=== PATIENT | male | born 1940 | race Caucasian/White ===

== ENCOUNTER 2017-02-16 14:02 | Emergency (ER) | payer OTHER ==
[~2017-02-16] VITALS: Ht 182.9 cm; Wt 90.9 kg
[~2017-02-16 14:02] MED LIST: FISH100020 PO; TERA2CAP3 PO
[2017-02-16 14:04] VITALS: BP 163/81; PULSE 80; RESP 24; TEMP 98.3; O2SAT 97
[2017-02-16 14:45] LABS: AUTOMATED NEUTROPHIL # 7.2 TH/MM3 (1.8-7.7); BASOPHIL % 0.4 % (0.0-2.0); EOSINOPHIL # 0.1 TH/MM3 (0-0.4); EOSINOPHIL % 1.2 % (0.0-4.0); HEMATOCRIT 38.1 % (39.0-51.0); HEMO FLAGS DIFF FINAL; LYMPH % 17.9 % (9.0-44.0); LYMPHOCYTE # 1.8 TH/MM3 (1.0-4.8); MEAN CELL VOLUME 89.4 FL (80.0-100.0); MEAN CORPUSCULAR HEMOGLOBIN 30.1 PG (27.0-34.0); MEAN CORPUSCULAR HGB CONC 33.6 % (32.0-36.0); MONO % 9.1 % (0.0-8.0); NEUT % 71.4 % (16.0-70.0); PLATELET COUNT 219 TH/MM3 (150-450); RED BLOOD COUNT 4.26 MIL/MM3 (4.50-5.90); RED CELL DISTRIBUTION WIDTH 13.5 % (11.6-17.2)
[2017-02-16 15:01] LABS: ANION GAP 9 MEQ/L (5-15); BICARBONATE 25.5 MEQ/L (21.0-32.0); BLOOD UREA NITROGEN 28 MG/DL (7-18); CHLORIDE 106 MEQ/L (98-107); GLOMERULAR FILTRATION RATE 56 ML/MIN (>89); POTASSIUM 4.2 MEQ/L (3.5-5.1); SODIUM (NA) 140 MEQ/L (136-145)
[2017-02-16 15:04] LABS: CREATINE KINASE 168 U/L (39-308)
[2017-02-16 15:17] VITALS: BP 155/74; PULSE 68; RESP 18; O2SAT 99
[2017-02-16 15:17] LABS: CKMB 5.3 NG/ML (0.5-3.6)
[2017-02-16] MEDS ORDERED: TERA2CAP3 PO (15:22)
--- NOTE | 2017-02-16 15:36 | PD ---
HPI Chief Complaint: Respiratory Symptoms Time Seen by Provider: 15:31 Travel History International Travel<30 days: No Contact w/Intl Traveler<30days: No Traveled to known affect area: No History of Present Illness HPI 77-year-old male that presents to the ED for evaluation of respiratory symptoms. Per patient she's been feeling shortness of breath with exertion for the past 2-3 days. She also had congestion and cough and fevers chills and sweats as well as some fatigue and increased tiredness. Per patient she's had something like this before in the past about 2 or 3 years ago and he at the time had pneumonia. Per patient he feels almost the same. He states that he did go his influenza vaccination this year. He has not seen anybody for this. His been taking Claritin [id number] with some relief. Per patient he has no cardiac history he did have a stress test 2 years ago which was negative. He denies any chest pain. He denies any history of CHF. He states having an old history of asthma as well as smoking which he states that he has not had any issues for the past 30 years. He denies smoking for 30 years. He denies any abdominal pain. Nausea or vomiting. No bowel movement or urinary issues. He does have allergies to aspirin, niacin, Pravachol and Zocor. Denies any sore throat. No ear pain. Does state that he has a lot of congestion and cough is productive. PFSH Past Medical History Arthritis: Yes Asthma: Yes Heart Rhythm Problems: No Cardiac Catheterization: No Cardiovascular Problems: Yes High Cholesterol: No Congestive Heart Failure: No Diabetes: No Hypertension: Yes Tetanus Vaccination: > 5 Years Past Surgical History Coronary Artery Bypass Graft: No Other Surgery: Yes (RIGHT HERNIA REPAIR) Social History Alcohol Use: No Tobacco Use: No Substance Use: No Allergies-Medications (Allergen,Severity, Reaction): Coded Allergies: Aspirin (Verified Adverse Reaction, Unknown, Bleeding, 02/16/17) Niacin (Verified Adverse Reaction, Unknown, Joint Pain, 02/16/17) Pravachol (Verified Adverse Reaction, Unknown, Joint Pain, 02/16/17) Zocor (Verified Adverse Reaction, Unknown, Joint Pain, 02/16/17) Uncoded Allergies: ZOC (Adverse Reaction, Unknown, Joint Pain, 02/16/17) zocor Reported Meds & Prescriptions Reported Meds & Active Scripts Active Reported Terazosin (Terazosin HCl) 2 Mg Cap 2 Mg PO HS Review of Systems General / Constitutional: Positive: Fever, Chills, No: Weight Gain, Weight Loss, Other Eyes: No: Diploplia, Blurred Vision, Photophobia, Drainage, Redness, Foreign Body Sensation, Pain, Tearing, Blind Spots, Visual changes, Blindness, Other HENT: Positive: Rhinitis, Congestion, No: Headaches, Vertigo, Lightheadedness , Sore Throat, Rhinorrhea, Nosebleed, Neck Stiffness, Neck Pain, Masses, Gingival Bleeding, Dental Difficulties, Ear Discharge, Earache, Other Cardiovascular: No: Chest Pain or Discomfort, Palpitations, Irregular Rhythm, Tachycardia, Diaphoresis, Syncope, Dyspnea on exertion, Varicosities, Edema, Cyanosis, Varicosities, Phlebitis, Claudication, Other Respiratory: Positive: Cough, Shortness of Breath, No: Wheezing, Sneezing, Orthopnea, Hemoptysis, Stridor, Night Sweats, Pleuritic Pain, Other Gastrointestinal: No: Nausea, Vomiting, Diarrhea, Abdominal Pain, Hematemesis, Hematochezia, Constipation, Changes in Bowel Habits, Indigestion, Dysphagia, Loss of Appetite, Other Genitourinary: No: Urgency, Frequency, Dysuria, Nocturia, Hematuria, Decreased Urinary Output, Oliguria, Hesitancy, Dribbling, Incontinence, Pelvic Pain, Flank Pain, Dyspareunia, Discharge, Dysmenorrhea, Menorrhagia, Metorrhagia, Vaginal Bleeding, Other Musculoskeletal: No: Myalgias, Arthralgias, Limited ROM, Weakness, Cramping, Edema, Pain, Atrophy, Other Skin: No Rash, No Itching, No Dryness, No Lumps, No Hives, No Change in Pigmentation, No Change in nails, No Alopecia, No Lesions, No Breast Lumps, No Breast Tenderness, No Breast Swelling, No Other Neurologic: No: Weakness, Dizziness, Syncope, Focal Abnormalities, Coordination Problem, Tremor, Ataxia, Headache, Change in Mentation, Slurred Speech, Paresthesia, Incontinence, Seizures, Sensory Disturbance, Other Psychiatric: No: Anxiety, Depression, Suicidal Ideations, Disorder of Thought, Mood Disorder, Substance Abuse, Homicidal Ideation, Other Endocrine: No: Heat Intolerance, Cold Intolerance, Polyuria, Polydipsia, Other Hematologic/Lymphatic: No: Easy Bruising, Lymph Node Enlargement, Other Physical Exam Narrative GENERAL: Well-nourished, well-developed patient in no apparent distress. SKIN: Warm and dry. HEAD: Atraumatic. Normocephalic. EYES: Pupils equal and round reactive to light and accommodation. No scleral icterus. No injection or drainage. ENT: No nasal bleeding or discharge. Mucous membranes pink and moist. TMs are clear with no sign of infection or perforation. No mastoid tenderness. Ear canals are intact bilaterally. No lymphadenopathy. Nostril mucosa is red and moist with clear mucus noted. No sinus tenderness to palpation noted. Tonsils are not enlarged or swollen. No ulvua Deviation. Tongue is midline. NECK: Trachea midline. No JVD. No meningeal signs noted CARDIOVASCULAR: Regular rate and rhythm. RESPIRATORY: No accessory muscle use. Clear to auscultation. Breath sounds equal bilaterally. GASTROINTESTINAL: Abdomen soft, non-tender, nondistended. Hepatic and splenic margins not palpable. MUSCULOSKELETAL: Extremities without clubbing, cyanosis, or edema. No obvious deformities. NEUROLOGICAL: Awake and alert. No obvious cranial nerve deficits. Motor grossly within normal limits. Five out of 5 muscle strength in the arms and legs. Normal speech. PSYCHIATRIC: Appropriate mood and affect; insight and judgment normal. Data Data Last Documented VS Vital Signs Date Time Temp Pulse Resp B/P Pulse Ox O2 Delivery O2 Flow Rate FiO2 02/16/17 15:17 68 18 155/74 99 Room Air 02/16/17 14:04 98.3 Orders Electrocardiogram (02/16/17 14:14) Complete Blood Count With Diff (02/16/17 14:14) Basic Metabolic Panel (Bmp) (02/16/17 14:14) Ckmb (Isoenzyme) Profile (02/16/17 14:14) Troponin I (02/16/17 14:14) CKMB (02/16/17 14:30) CKMB% (02/16/17 14:30) Influenzae A/B Antigen (02/16/17 15:21) Chest, Single Ap (02/16/17 ) Labs Laboratory Tests Test 02/16/17 14:30 White Blood Count 10.0 TH/MM3 Red Blood Count 4.26 MIL/MM3 Hemoglobin 12.8 GM/DL Hematocrit 38.1 % Mean Corpuscular Volume 89.4 FL Mean Corpuscular Hemoglobin 30.1 PG Mean Corpuscular Hemoglobin 33.6 % Concent Red Cell Distribution Width 13.5 % Platelet Count 219 TH/MM3 Mean Platelet Volume 8.3 FL Neutrophils (%) (Auto) 71.4 % Lymphocytes (%) (Auto) 17.9 % Monocytes (%) (Auto) 9.1 % Eosinophils (%) (Auto) 1.2 % Basophils (%) (Auto) 0.4 % Neutrophils # (Auto) 7.2 TH/MM3 Lymphocytes # (Auto) 1.8 TH/MM3 Monocytes # (Auto) 0.9 TH/MM3 Eosinophils # (Auto) 0.1 TH/MM3 Basophils # (Auto) 0.0 TH/MM3 CBC Comment DIFF FINAL Differential Comment Sodium Level 140 MEQ/L Potassium Level 4.2 MEQ/L Chloride Level 106 MEQ/L Carbon Dioxide Level 25.5 MEQ/L Anion Gap 9 MEQ/L Blood Urea Nitrogen 28 MG/DL Creatinine 1.25 MG/DL Estimat Glomerular Filtration 56 ML/MIN Rate Random Glucose 140 MG/DL Calcium Level 8.7 MG/DL Total Creatine Kinase 168 U/L Creatine Kinase MB 5.3 NG/ML Troponin I LESS THAN 0.02 NG/ML MDM Medical Decision Making Medical Screen Exam Complete: Yes Emergency Medical Condition: Yes Medical Record Reviewed: Yes Interpretation(s) CBC & BMP Diagram 02/16/17 14:30 EKG shows sinus rhythm with no sign of acute ischemia or arrhythmia. Read by me and attending. Troponin and CK-MB negative. Influenza test negative. Chest x-ray negative for acute disease. Differential Diagnosis Pneumonia versus upper respiratory infection versus bronchitis versus ACS less likely Narrative Course 77-year-old male that presents to the ED for evaluation of cough and running nose as well as shortness of breath with exertion. Patient was properly examined and was found to have signs and symptoms which appear to be more consistent with infectious etiology than cardiac. Patient had workup done in the triage area for protocols and had an EKG as well as labs that were negative for acute disease including troponin negative and EKG showing sinus rhythm with no sign of acute ischemia. Patient complains of no chest pain. ACS is less likely. I do recommend chest x-ray and influenza test in addition to labs already performed. Patient is in agreement with this. Chest x-ray and influenza that showed no sign of acute disease. This time I believe that this is likely viral infection but we'll treat with azithromycin secondary to patient 's comorbidities and age to rule out any sign of early pneumonia. Patient was given prescription for Tessalon Perles. At this time I recommend close follow- up with PCP. Take OTC meds as needed. See ED for any worsening symptoms. Patient and were made aware of all findings and agrees with plan. Diagnosis Primary Impression: Bronchitis Patient Instructions: General Instructions Additional Instructions: Motrin and Tylenol for pain and fever. You can use [id number] antihistamine as well as well as Mucinex as needed for runny nose and congestion. Cough drops for cough as needed. Drink plenty of fluids. Follow-up with PCP. See ED for worsening symptoms. Med/Other Pt SpecificInfo: Prescription(s) given Scripts Benzonatate (Tessalon Perles)100 Mg [id number] Mg PO TID PRN (COUGH) #20 CAP Prov:Yazmin Renae MD 02/16/17 Azithromycin 250 Mg [id number] Mg PO DIRECTED #6 TAB Take 2 tabs (500 mg) on day 1 then 1 tab daily x 4 days. Prov:Yazmin Renae MD 02/16/17 Disposition: 01 DISCHARGE HOME Condition: Stable Praful [place] Feb 16, 2017 15:36
--- NOTE | 2017-02-16 15:57 | RADRPT ---
EXAM DATE/TIME: 02/16/2017 15:22 [facility] COMPARISON: CHEST SINGLE AP, June 26, 2013, 9:31. INDICATIONS : Cough, shortness of breath, and congestion. MEDICAL HISTORY : None. SURGICAL HISTORY : None. ENCOUNTER: Initial ACUITY: 3 days PAIN SCORE: 0/10 LOCATION: chest FINDINGS: A single view of the chest demonstrates the lungs to be symmetrically aerated without evidence of mas s, infiltrate or effusion. The cardiomediastinal contours are unremarkable. Osseous structures are intact. CONCLUSION: No acute disease. Arnulfo Galarza MD FACR on February 16, 2017 at 15:55 Board Certified Radiologist. This report was verified electronically.
[2017-02-16] MEDS ORDERED: AZIT250T3 PO (16:12)
[2017-02-16] MEDS ORDERED: BENZ100 PO (16:12)
[2017-02-16 16:48] VITALS: BP 145/83; PULSE 59; RESP 18; O2SAT 98
--- NOTE | 2017-02-17 13:12 | EKG ---
Date Performed: 02/16/2017 Time Performed: 14:25:19 PTAGE: 77 years EKG: Sinus rhythm NORMAL ECG PREVIOUS TRACING : 06/26/2013 15.22 Compared to prior tracing no significant change DOCTOR: Pineda Burkett Interpretating Date/Time 02/17/2017 13:11:43
== END 2017-02-16 16:51 | disposition home or self-care (01) ==
LOC: NEPC 14:02
DX: J40 Bronchitis, not specified as acute or chronic (principal); Z87.891 Personal history of nicotine dependence
CPT/HCPCS: 71010; 80048; 82550; 82552; 84484; 85025; 87804; 93005

== ENCOUNTER 2017-08-10 12:18 | Emergency (ER) | payer OTHER ==
[~2017-08-10] VITALS: Ht 182.9 cm; Wt 100.0 kg
[~2017-08-10 12:18] MED LIST changes: +AZIT250T3 PO; +BENZ100 PO; -FISH100020 PO
[2017-08-10 12:19] VITALS: BP 173/81; PULSE 91; RESP 20; TEMP 98.5; O2SAT 96
--- NOTE | 2017-08-10 12:23 | PD ---
Physical Exam Time Seen by Provider: 12:23 Narrative 77 y/o male here with injuries to R leg, L forearm sustained when branches from a tree hit him while cutting down branches. Vital signs reviewed. Seen at triage desk. Awaiting bed placement. Data Data Last Documented VS Vital Signs Date Time Temp Pulse Resp B/P (MAP) Pulse Ox O2 Delivery O2 Flow Rate FiO2 08/10/17 12:19 98.5 91 20 173/81 (111) 96 Room Air [facility] Medical Record Reviewed: Yes Supervised Visit with MAYCO: Jaime Chandler Aug 10, 2017 12:23
[2017-08-10] MEDS ORDERED: ESCI5TAB PO (13:39)
--- NOTE | 2017-08-10 13:47 | PD ---
HPI Chief Complaint: Skin Problem Time Seen by Provider: 13:33 Travel History International Travel<30 days: No Contact w/Intl Traveler<30days: No Traveled to known affect area: No History of Present Illness HPI The patient is a 77 year-old male who presents emergency department for laceration to the right lower extremity as well as abrasions to left lower extremity and left arm. The patient was on a ladder cutting down a tree earlier today when the tree fell, struck the ladder, and he fell from the ladder. The patient estimates that he was 12 feet off the ground and fell onto a grass surface. The patient is unsure if there is any loss of consciousness, cannot recall the first thing hit the ground. The patient currently complains of some right mid leg pain where laceration is present as well as a superficial abrasion to left lower extremity and abrasion to left arm. He denies any headache, neck pain, chest pain, shortness breath, nausea, vomiting, or abdominal pain. The patient denies taking any anticoagulants. The patient's last tetanus shot was 4 years ago per his report. Symptoms are mild to moderate , exacerbated after falling, and there are no current alleviating factors. PFSH Past Medical History Arthritis: Yes Asthma: Yes Depression: Yes Heart Rhythm Problems: No Cardiac Catheterization: No Cardiovascular Problems: Yes High Cholesterol: No Congestive Heart Failure: No Diabetes: No Diminished Hearing: No Hypertension: Yes Psychiatric: Yes Tetanus Vaccination: < 5 Years Influenza Vaccination: Yes Past Surgical History Coronary Artery Bypass Graft: No Other Surgery: Yes (RIGHT HERNIA REPAIR) Social History Alcohol Use: No Tobacco Use: No Substance Use: No Allergies-Medications (Allergen,Severity, Reaction): Coded Allergies: aspirin (Unverified Adverse Reaction, Unknown, Bleeding, 08/10/17) niacin (Unverified Adverse Reaction, Unknown, Joint Pain, 08/10/17) pravastatin (Unverified Adverse Reaction, Unknown, Joint Pain, 08/10/17) simvastatin (Unverified Adverse Reaction, Unknown, Joint Pain, 08/10/17) Uncoded Allergies: ZOC (Adverse Reaction, Unknown, Joint Pain, 02/16/17) zocor Reported Meds & Prescriptions Reported Meds & Active Scripts Active Reported Escitalopram (Escitalopram Oxalate) 5 Mg Tab 5 Mg PO DAILY Terazosin (Terazosin HCl) 2 Mg Cap 2 Mg PO HS Review of Systems Except as stated in HPI: all other systems reviewed are Neg HENT: No: Headaches, Neck Pain Cardiovascular: No: Chest Pain or Discomfort Respiratory: No: Shortness of Breath Gastrointestinal: No: Nausea, Vomiting, Abdominal Pain Musculoskeletal: Positive: Pain Skin: Positive Other (as noted in the history of present illness) Neurologic: No: Change in Mentation, Paresthesia, Sensory Disturbance Physical Exam Narrative GENERAL: Awake, alert, very pleasant 77-year-old male who appears his stated age and is in no acute respiratory distress. SKIN: Focused skin assessment warm/dry. HEAD: Atraumatic. Normocephalic. No visible cephalic hematomas EYES: No injection or drainage. ENT: No nasal bleeding or discharge. Mucous membranes pink and moist. NECK: Trachea midline. No JVD. CARDIOVASCULAR: Regular rate and rhythm. No murmur appreciated. RESPIRATORY: No accessory muscle use. Clear to auscultation. Breath sounds equal bilaterally. GASTROINTESTINAL: Abdomen soft, non-tender, nondistended. Back: No tenderness over the thoracic or lumbar vertebrae. MUSCULOSKELETAL: Patient has a 4 cm laceration of the anterior aspect of the right mid tibia/fibula, but is able to fully flex and extend the right hip, right knee, and ankle. Positive distal pulses. Superficial abrasion noted of the anterior aspect the left lower extremity, but he is able to bear weight on both extremities. Superficial abrasion of the extensor surface of the mid left forearm, but he is able fully flex and extend left elbow, left wrist, as well as supinate and pronate the left forearm. NEUROLOGICAL: Awake and alert. No obvious cranial nerve deficits. Motor grossly within normal limits. Normal speech. Alert and oriented 4. Follows commands without difficulty. Nonfocal on exam. PSYCHIATRIC: Appropriate mood and affect; insight and judgment normal. Data Data Last Documented VS Vital Signs Date Time Temp Pulse Resp B/P (MAP) Pulse Ox O2 Delivery O2 Flow Rate FiO2 08/10/17 12:19 98.5 91 20 173/81 (111) 96 Room Air Orders Orders Tibia/Fibula (Ap/Lat) (08/10/17 ) Ct Brain W/O Iv Contrast(Rout) (08/10/17 ) MDM Medical Decision Making Medical Screen Exam Complete: Yes Emergency Medical Condition: Yes Medical Record Reviewed: Yes Interpretation(s) Last Impressions Head CT 08/10/17 0000 Signed Impressions: Service Date/Time: Thursday, August 10, 2017 13:52 - CONCLUSION: 1. No acute intracranial abnormality identified. Antelmo Galarza MD X-ray of the tibia/fibula on the right reveals degenerative changes, negative for fracture. Differential Diagnosis Differential diagnosis includes closed head injury, multisystem trauma, open fracture, foreign body, laceration, hematoma, abrasion. Narrative Course CT of the brain was obtained. X-ray of the right tibia/fibula was ordered. The patient states his tetanus shot is up-to-date. The patient's laceration was repaired by the mid-level provider, please refer to the procedure note. CT the brain is negative. X-rays negative for fracture, degenerative changes are noted. Patient's x-rays unremarkable, therefore, the laceration was repaired by the mid-level provider. The patient is advised to clean the area twice a day with soap and water, apply Polysporin, and have the sutures removed in 10- 14 days. Monitor for signs of infection. Diagnosis Primary Impression: Laceration of leg Qualified Codes: S81.811A - Laceration without foreign body, right lower leg, initial encounter Additional Impression: Abrasions of multiple sites Patient Instructions: General Instructions Additional Instructions: Wound care instructions. Polysporin twice a day, monitor for signs of infection , follow-up with your primary physician. Return if symptoms worsen or progress. Med/Other Pt SpecificInfo: No Change to Meds Disposition: 01 DISCHARGE HOME Condition: Stable Parish Cha MD Aug 10, 2017 13:47
--- NOTE | 2017-08-10 14:05 | RADRPT ---
EXAM DATE/TIME: 08/10/2017 13:52 [facility] COMPARISON: No previous studies available for comparison. INDICATIONS : Trauma; fall from ladder. RADIATION DOSE: 56.35 CTDIvol (mGy) MEDICAL HISTORY : Hypertension. Cardiovascular disease Asthma. SURGICAL HISTORY : None. ENCOUNTER: Initial ACUITY: 1 day PAIN SCALE: 5/10 LOCATION: cranial TECHNIQUE: Multiple contiguous axial images were obtained of the head. Using automated exposure control and adj ustment of the mA and/or kV according to patient size, radiation dose was kept as low as reasonably a chievable to obtain optimal diagnostic quality images. DICOM format image data is available electro nically for review and comparison. FINDINGS: CEREBRUM: The ventricles are normal for age. No evidence of midline shift, mass lesion, hemorrhage or acute in farction. No extra-axial fluid collections are seen. POSTERIOR FOSSA: The cerebellum and brainstem are intact. The 4th ventricle is midline. The cerebellopontine angle i s unremarkable. EXTRACRANIAL: The visualized portion of the orbits is intact. SKULL: The calvaria is intact. No evidence of skull fracture. CONCLUSION: 1. No acute intracranial abnormality identified. Antelmo Galarza MD on August 10, 2017 at 14:03 Board Certified Radiologist. This report was verified electronically.
--- NOTE | 2017-08-10 14:22 | RADRPT ---
EXAM DATE/TIME: 08/10/2017 14:03 [facility] COMPARISON: No previous studies available for comparison. INDICATIONS : Right lower leg laceration. MEDICAL HISTORY : None. SURGICAL HISTORY : None. ENCOUNTER: Initial ACUITY: 1 day PAIN SCORE: /10 LOCATION: Right lower leg. FINDINGS: Degenerative changes are evident with loss of articulate cartilage medial compartment. Alignment is anatomic. Fracture of the tibia and fibula are not appreciated. CONCLUSION: Degenerative changes, negative for fracture. Arnulfo Galarza MD FACR on August 10, 2017 at 14:14 Board Certified Radiologist. This report was verified electronically.
--- NOTE | 2017-08-10 15:07 | PD ---
Physical Exam Date Seen by Provider: Aug 10, 2017 Time Seen by Provider: 15:03 Data Data Last Documented VS Vital Signs Date Time Temp Pulse Resp B/P (MAP) Pulse Ox O2 Delivery O2 Flow Rate FiO2 08/10/17 12:19 98.5 91 20 173/81 (111) 96 Room Air Orders Orders Tibia/Fibula (Ap/Lat) (08/10/17 ) Ct Brain W/O Iv Contrast(Rout) (08/10/17 ) MDM Medical Record Reviewed: Yes Supervised Visit with MAYCO: Yes Narrative Course Well-nourished well-appearing 77-year-old male in no acute distress. I was asked by primary provider, Dr. Cha to repair a laceration to the left lower extremity. Laceration was repaired using 4. 0 Prolene sutures. Please see my procedural narrative for details. Dr. Cha retains care of this patient. Please see his documentation for further details and disposition. Procedures Procedure Narrative LACERATION LOCATION: Left anterior portion of lower leg LENGTH: 4 cm NUMBER OF STITCHES/MIAN: 3 x 4. 0 Prolene REPAIR: The area of the laceration was prepped with Betadine and sterilely draped. The laceration was infiltrated with 1% lidocaine. The wound was copiously irrigated and explored without evidence of foreign body, tendon injury or neurovascular injury. The wound was closed using 3 sutures of 4. 0 Prolene. This was a single layer repair. A sterile dressing was applied. The patient was advised to keep the dressing clean and dry. Patient tolerated the procedure well. Diagnosis Primary Impression: Laceration of leg Qualified Codes: S81.811A - Laceration without foreign body, right lower leg, initial encounter Additional Impression: Abrasions of multiple sites Patient Instructions: General Instructions Additional Instruction: Wound care instructions. Polysporin twice a day, monitor for signs of infection , follow-up with your primary physician. Return if symptoms worsen or progress. Disposition: 01 DISCHARGE HOME Condition: Stable OzGely cervantes Georgette VAZQUEZ Aug 10, 2017 15:07
== END 2017-08-10 15:36 | disposition home or self-care (01) ==
LOC: NEPD 12:18
DX: S81.811A Laceration without foreign body, right lower leg, initial encounter (principal); S80.812A Abrasion, left lower leg, initial encounter; S50.812A Abrasion of left forearm, initial encounter; I10 Essential (primary) hypertension; Z87.39 Personal history of other diseases of the musculoskeletal system and connective tissue; Z87.09 Personal history of other diseases of the respiratory system; Z86.59 Personal history of other mental and behavioral disorders; W11.XXXA Fall on and from ladder, initial encounter; Y93.H2 Activity, gardening and landscaping
CPT/HCPCS: 12002; 70450; 73590

== ENCOUNTER 2017-08-29 11:01 | Emergency (ER) | payer MEDICARE, OTHER ==
[~2017-08-29] VITALS: Ht 182.9 cm; Wt 90.0 kg
[~2017-08-29 11:01] MED LIST changes: -AZIT250T3 PO; -BENZ100 PO; +ESCI5TAB PO
[2017-08-29 11:10] VITALS: BP 169/84; PULSE 63; RESP 15; TEMP 98.5; O2SAT 98
[2017-08-29 12:28] VITALS: BP 140/75; PULSE 60; RESP 17; TEMP 97.7; O2SAT 96
[2017-08-29] MEDS ORDERED: SODIUM CHLORIDE 0.9% FLUSH 10 ML FLUSH IVF PRN (12:30)
[2017-08-29] MEDS ORDERED: MECLIZINE HCL 25 MG TAB PO ONE (12:30)
[2017-08-29] MEDS ORDERED: ONDANSETRON HCL 4 MG/2 ML VIAL IV ONE (12:30)
[2017-08-29 12:45] VITALS: BP 140/75; PULSE 55; RESP 17; TEMP 97.7; O2SAT 96
--- NOTE | 2017-08-29 12:55 | PD ---
HPI Chief Complaint: Dizziness Time Seen by Provider: 12:03 Travel History International Travel<30 days: No Contact w/Intl Traveler<30days: No Traveled to known affect area: No History of Present Illness HPI This patient complains of dizziness. He has a room spinning dizziness that is worse with movement of his head. It started 3 weeks ago when he fell out of a tree and got injured. He came here and was evaluated and had a negative CT of brain but later that day started to get the dizziness. It is an intermittent phenomenon but was worse today. He did have a mild central forehead headache. No thunderclap onset. No recent head injury. No vomiting. He complains of some vague generalized type weakness. Symptoms severity is moderate. No alleviating factors. No exacerbating factors PFSH Past Medical History Arthritis: Yes Asthma: Yes Depression: Yes Heart Rhythm Problems: No Cardiac Catheterization: No Cardiovascular Problems: Yes High Cholesterol: No Congestive Heart Failure: No Diabetes: No Diminished Hearing: No Hypertension: Yes Psychiatric: Yes Tetanus Vaccination: Unknown Influenza Vaccination: No Past Surgical History Coronary Artery Bypass Graft: No Other Surgery: Yes (RIGHT HERNIA REPAIR) Social History Alcohol Use: No Tobacco Use: No Substance Use: No Allergies-Medications (Allergen,Severity, Reaction): Coded Allergies: aspirin (Verified Adverse Reaction, Unknown, Bleeding, 08/29/17) niacin (Verified Adverse Reaction, Unknown, Joint Pain, 08/29/17) pravastatin (Verified Adverse Reaction, Unknown, Joint Pain, 08/29/17) simvastatin (Verified Adverse Reaction, Unknown, Joint Pain, 08/29/17) Uncoded Allergies: ZOC (Adverse Reaction, Unknown, Joint Pain, 02/16/17) zocor Reported Meds & Prescriptions Reported Meds & Active Scripts Active Meclizine (Meclizine HCl) 25 Mg Tab 25 Mg PO TID PRN Zofran (Ondansetron HCl) 4 Mg Tab 4 Mg PO Q6HR PRN Reported Escitalopram (Escitalopram Oxalate) 5 Mg Tab 5 Mg PO DAILY Terazosin (Terazosin HCl) 2 Mg Cap 2 Mg PO HS Review of Systems General / Constitutional: No: Fever Eyes: No: Visual changes HENT: Positive: Headaches, Vertigo, Lightheadedness Cardiovascular: No: Chest Pain or Discomfort Respiratory: No: Shortness of Breath Gastrointestinal: No: Abdominal Pain Genitourinary: No: Dysuria Musculoskeletal: No: Pain Skin: No Rash Neurologic: Positive: Weakness, Dizziness Psychiatric: No: Depression Endocrine: No: Polydipsia Hematologic/Lymphatic: No: Easy Bruising Physical Exam Narrative GENERAL: Well-nourished, well-developed patient with vertigo . SKIN: Focused skin assessment reveals no rash and nodules. Skin is Warm and dry. HEAD: Atraumatic. Normocephalic. EYES: Pupils equal and round. No scleral icterus. No injection or drainage. ENT: No nasal bleeding or discharge. Mucous membranes pink and moist. NECK: Trachea midline. No JVD. CARDIOVASCULAR: Regular rate and rhythm. No murmur appreciated. RESPIRATORY: No accessory muscle use. Clear to auscultation. Breath sounds equal bilaterally. GASTROINTESTINAL: Abdomen soft, non-tender, nondistended. Hepatic and splenic margins not palpable. MUSCULOSKELETAL: No obvious deformities. No clubbing. No cyanosis. No edema. NEUROLOGICAL: Awake and alert. No obvious cranial nerve deficits. Motor grossly within normal limits. Normal speech. PSYCHIATRIC: Appropriate mood and affect; insight and judgment normal. Data Data Last Documented VS Vital Signs Date Time Temp Pulse Resp B/P (MAP) Pulse Ox O2 Delivery O2 Flow Rate FiO2 08/29/17 13:22 55 16 138/71 (93) 97 08/29/17 12:45 97.7 Room Air Orders Orders Electrocardiogram (08/29/17 12:30) Basic Metabolic Panel (Bmp) (08/29/17 12:30) Complete Blood Count With Diff (08/29/17 12:30) Ct Brain W/O Iv Contrast(Rout) (08/29/17 12:30) Ecg Monitoring (08/29/17 12:30) Iv Access Insert/Monitor (08/29/17 12:30) Oximetry (08/29/17 12:30) Sodium Chloride 0.9% Flush (Ns Flush) (08/29/17 12:30) Ondansetron Inj (Zofran Inj) (08/29/17 12:30) Meclizine (Antivert) (08/29/17 12:30) Labs Laboratory Tests Test 08/29/17 12:45 White Blood Count 10.6 TH/MM3 Red Blood Count 4.25 MIL/MM3 Hemoglobin 13.1 GM/DL Hematocrit 38.7 % Mean Corpuscular Volume 91.2 FL Mean Corpuscular Hemoglobin 30.9 PG Mean Corpuscular Hemoglobin Concent 33.9 % Red Cell Distribution Width 13.1 % Platelet Count 177 TH/MM3 Mean Platelet Volume 8.3 FL Neutrophils (%) (Auto) 86.6 % Lymphocytes (%) (Auto) 7.7 % Monocytes (%) (Auto) 5.1 % Eosinophils (%) (Auto) 0.4 % Basophils (%) (Auto) 0.2 % Neutrophils # (Auto) 9.2 TH/MM3 Lymphocytes # (Auto) 0.8 TH/MM3 Monocytes # (Auto) 0.5 TH/MM3 Eosinophils # (Auto) 0.0 TH/MM3 Basophils # (Auto) 0.0 TH/MM3 CBC Comment DIFF FINAL Differential Comment Blood Urea Nitrogen 18 MG/DL Creatinine 1.00 MG/DL Random Glucose 142 MG/DL Calcium Level 8.8 MG/DL Sodium Level 140 MEQ/L Potassium Level 4.1 MEQ/L Chloride Level 106 MEQ/L Carbon Dioxide Level 25.6 MEQ/L Anion Gap 8 MEQ/L Estimat Glomerular Filtration Rate 73 ML/MIN MDM Medical Decision Making Medical Screen Exam Complete: Yes Emergency Medical Condition: Yes Medical Record Reviewed: Yes Differential Diagnosis Positional vertigo, postconcussive syndrome, skull fracture Narrative Course I have reviewed the patient's electronic medical record. I reviewed his visit from 3 weeks ago. He had a CT of the brain that was negative IV placed Patient is neurologically intact without objective deficit Symptoms are not focal but more global He does have a positional vertigo which started 3 weeks ago after head injury Brain CT today is normal CBC is normal Metabolic profile is normal I gave him a dose of IV Zofran and meclizine On recheck he is feeling improved. Vital signs and exam and workup are negative Presentation is consistent with positional vertigo Prescription written for meclizine and Zofran and primary care follow-up recommended Diagnosis Primary Impression: Positional vertigo Qualified Codes: H81.10 - Benign paroxysmal vertigo, unspecified ear Additional Impression: Postconcussive syndrome Additional Instructions: The patient was advised to follow up with their physician and return if they worsen. The patient was warned about potential sedation for the medications they will receive on prescription. Med/Other Pt SpecificInfo: Prescription(s) given Scripts Meclizine (Meclizine) 25 Mg Tab 25 MG PO TID Y for VERTIGO, #20 TAB 0 Refills Prov: Alfonzo Mead MD 08/29/17 Ondansetron (Zofran) 4 Mg Tab 4 MG PO Q6HR Y for NAUSEA OR VOMITING, #12 TAB 0 Refills Prov: Alfonzo Mead MD 08/29/17 Disposition: 01 DISCHARGE HOME Condition: Stable Alfonzo Mead MD Aug 29, 2017 12:55
[2017-08-29 13:19] LABS: AUTOMATED NEUTROPHIL # 9.2 TH/MM3 (1.8-7.7); BASOPHIL % 0.2 % (0.0-2.0); EOSINOPHIL % 0.4 % (0.0-4.0); HEMATOCRIT 38.7 % (39.0-51.0); HEMO FLAGS DIFF FINAL; LYMPH % 7.7 % (9.0-44.0); LYMPHOCYTE # 0.8 TH/MM3 (1.0-4.8); MEAN CELL VOLUME 91.2 FL (80.0-100.0); MEAN CORPUSCULAR HEMOGLOBIN 30.9 PG (27.0-34.0); MEAN CORPUSCULAR HGB CONC 33.9 % (32.0-36.0); MONO % 5.1 % (0.0-8.0); NEUT % 86.6 % (16.0-70.0); PLATELET COUNT 177 TH/MM3 (150-450); RED BLOOD COUNT 4.25 MIL/MM3 (4.50-5.90); RED CELL DISTRIBUTION WIDTH 13.1 % (11.6-17.2); WHITE BLOOD COUNT 10.6 TH/MM3 (4.0-11.0)
--- NOTE | 2017-08-29 13:19 | RADRPT ---
EXAM DATE/TIME: 08/29/2017 13:03 [facility] COMPARISON: CT BRAIN W/O CONTRAST, August 10, 2017, 13:52. INDICATIONS : Nausea,dirrhea,dizziness,several weeks,fall RADIATION DOSE: 56.41 CTDIvol (mGy) MEDICAL HISTORY : Cardiovascular disease. Hypertension. SURGICAL HISTORY : None. ENCOUNTER: Initial ACUITY: 2 weeks PAIN SCALE: 2/10 LOCATION: cranial TECHNIQUE: Multiple contiguous axial images were obtained of the head. Using automated exposure control and adj ustment of the mA and/or kV according to patient size, radiation dose was kept as low as reasonably a chievable to obtain optimal diagnostic quality images. DICOM format image data is available electro nically for review and comparison. FINDINGS: CEREBRUM: The ventricles are normal for age. No evidence of midline shift, mass lesion, hemorrhage or acute in farction. No extra-axial fluid collections are seen. POSTERIOR FOSSA: The cerebellum and brainstem are intact. The 4th ventricle is midline. The cerebellopontine angle i s unremarkable. Prominent cisterna magna, a normal variant. EXTRACRANIAL: The visualized portion of the orbits is intact. SKULL: The calvaria is intact. No evidence of skull fracture. CONCLUSION: Negative for acute process. Arnulfo Galarza MD FACR on August 29, 2017 at 13:17 Board Certified Radiologist. This report was verified electronically.
[2017-08-29 13:22] VITALS: BP 138/71; PULSE 55; RESP 16; O2SAT 97
[2017-08-29 13:36] LABS: BICARBONATE 25.6 MEQ/L (21.0-32.0); POTASSIUM 4.1 MEQ/L (3.5-5.1)
[2017-08-29] MEDS ORDERED: ZOFR4TAB PO (14:39)
[2017-08-29] MEDS ORDERED: MECL-62 PO (14:39)
[2017-08-29 15:45] VITALS: BP 127/68; PULSE 52; RESP 17; O2SAT 97
--- NOTE | 2017-08-31 07:51 | EKG ---
Date Performed: 08/29/2017 Time Performed: 13:19:25 PTAGE: 77 years EKG: SINUS BRADYCARDIA ST CHANGES COMPATIBLE WITH EARLY REPOLARIZATION Compared to the previous tracing the early repolarization changes are more prominent. ABNORMAL ECG PREVIOUS TRACING : 02/16/2017 14.25 DOCTOR: Jesse Obregon Interpretating Date/Time 08/31/2017 07:50:28
== END 2017-08-29 15:45 | disposition home or self-care (01) ==
LOC: NEPD 11:01
DX: H81.10 Benign paroxysmal vertigo, unspecified ear (principal); F07.81 Postconcussional syndrome; R51 Headache; R53.1 Weakness; R94.31 Abnormal electrocardiogram [ECG] [EKG]; I10 Essential (primary) hypertension; Z87.39 Personal history of other diseases of the musculoskeletal system and connective tissue; Z87.09 Personal history of other diseases of the respiratory system; Z86.59 Personal history of other mental and behavioral disorders; Z86.79 Personal history of other diseases of the circulatory system
CPT/HCPCS: 70450; 80048; 85025; 93005; 96374; 99285; J2405